=== PATIENT | female | born 1995 | race Caucasian/White ===

== ENCOUNTER 2018-12-03 08:15 | Emergency (ER) | payer BC, SELFPAY ==
--- NOTE | 2018-12-03 09:06 | RAD ---
XR Wrist 3 Rt View STANDARD: 12/03/2018 8:46 AM CLINICAL INDICATION: Injury COMPARISON: None. FINDINGS: Fracture:No fracture. Arthropathy:None of significance. Incidental findings:None of significance. IMPRESSION: 1. No acute osseous abnormality.
--- NOTE | 2018-12-03 09:07 | RAD ---
2 view chest: CLINICAL HISTORY: Injury COMPARISON: None FINDINGS: There is no focal consolidation, effusion, or pneumothorax. Cardiac silhouette is normal in size. No acute osseous abnormality. IMPRESSION: No focal consolidation.
--- NOTE | 2018-12-03 09:08 | RAD ---
XR Hand Rt 3 View STANDARD: 12/03/2018 8:47 AM CLINICAL INDICATION: Injury COMPARISON: None. FINDINGS: Fracture:No fracture. Arthropathy:None of significance. Incidental findings:None of significance. IMPRESSION: 1. No acute osseous abnormality.
[2018-12-03] MEDS ORDERED: Cyclobenzaprine 10 MG TAB ONE (09:29)
--- NOTE | 2018-12-03 09:31 | RAD ---
XR Shoulder Lt 3 View STANDARD: 12/03/2018 9:01 AM CLINICAL INDICATION: Pain COMPARISON: None. FINDINGS: Fracture:No fracture. Arthropathy:None of significance. Incidental findings:None of significance. IMPRESSION: 1. No acute osseous abnormality.
== END 2018-12-03 10:20 | disposition home or self-care (01) ==
LOC: ERS 08:15
DX: S50.11XA Contusion of right forearm, initial encounter (principal); M25.531 Pain in right wrist; V43.52XA Car driver injured in collision with other type car in traffic accident, initial encounter
CPT/HCPCS: 71046